=== PATIENT | male | born 1985 | race Caucasian/White ===

== ENCOUNTER 2016-10-31 11:57 | Emergency (ER) | payer OTHER ==
[~2016-10-31 11:57] MED LIST: IBUPROFEN 200200 MG PO
[2016-10-31] MEDS ORDERED: BACLOFEN10 M1 PO (13:47)
[2016-10-31] MEDS ORDERED: NORCO 325 MG-51 TA1 PO (13:47)
== END 2016-10-31 13:58 | disposition home or self-care (01) ==
LOC: ED 11:57
DX: M54.5 Low back pain (principal); M25.512 Pain in left shoulder; M25.562 Pain in left knee; Z87.828 Personal history of other (healed) physical injury and trauma; V49.9XXD Car occupant (driver) (passenger) injured in unspecified traffic accident, subsequent encounter

== ENCOUNTER 2016-12-15 14:20 | Emergency (ER) | payer OTHER ==
[~2016-12-15] VITALS: Ht 165.1 cm; Wt 81.8 kg
[~2016-12-15 14:20] MED LIST changes: +BACLOFEN10 M1 PO; +NORCO 325 MG-51 TA1 PO
[2016-12-15] MEDS ORDERED: AZITHROMYCIN 250MG PO (19:57)
[2016-12-15] MEDS ORDERED: GUAIFEN/CODEIN120 ML PO (19:57)
[2016-12-15] MEDS ORDERED: ONDANSETRON HYDR4 M1 PO (19:57)
[2016-12-15 20:15] VITALS: BP 105/70
== END 2016-12-15 20:15 | disposition home or self-care (01) ==
LOC: ED 14:20
DX: J18.9 Pneumonia, unspecified organism (principal); F17.210 Nicotine dependence, cigarettes, uncomplicated; R11.2 Nausea with vomiting, unspecified; R19.7 Diarrhea, unspecified; E86.9 Volume depletion, unspecified
CPT/HCPCS: J0456; J0696; J1885; J2405; J2765; J7030; J7050

== ENCOUNTER → 2017-01-29 | Outpatient (CLI) | payer SELFPAY ==
[~2017-01-29] MED LIST changes: +AZITHROMYCIN 250MG PO; +GUAIFEN/CODEIN120 ML PO; +ONDANSETRON HYDR4 M1 PO; +TRAMADOL 50 MG TAB PO
== END ==
LOC: RAD 09:37
DX: R93.8 Abnormal findings on diagnostic imaging of other specified body structures (principal)

== ENCOUNTER 2017-02-19 18:27 | Emergency (ER) | payer OTHER ==
[~2017-02-19] VITALS: Ht 165.1 cm; Wt 81.4 kg
[~2017-02-19 18:27] MED LIST changes: -TRAMADOL 50 MG TAB PO
[2017-02-19] MEDS ORDERED: NORCO 325 MG-51 TA1 PO (18:33)
[2017-02-19] MEDS ORDERED: TRAMADOL 50 MG TAB PO (18:34)
[2017-02-19 19:35] VITALS: BP 143/90
== END 2017-02-19 19:35 | disposition home or self-care (01) ==
LOC: ED 18:27
DX: S61.213A Laceration without foreign body of left middle finger without damage to nail, initial encounter (principal); W26.8XXA Contact with other sharp object(s), not elsewhere classified, initial encounter
CPT/HCPCS: A4649